=== PATIENT | female | born 1945 | race Caucasian/White ===

== ENCOUNTER 2017-11-05 12:21 | Inpatient (IN) | payer MEDICARE, BC ==
[~2017-11-05] VITALS: Ht 160 cm; Wt 65.5 kg
[~2017-11-05 12:21] MED LIST: ACET325T9 PO; ASPI-630 PO; CIPR500T94 PO; DOCU-109 PO; IBUP200T58 PO; LEVO100T PO; METR500T PO; PHEN100T82 PO; TIMO5DRO26 OU
[2017-11-05] MEDS ORDERED: MORPHINE SULFATE 4 MG/ML DISP.SYRIN. IV PRN (12:45)
[2017-11-05 13:07] LABS: BASO % 0 % (0-3); EOS # 0.1 x10^3/uL (0.0-0.7); EOS % 2 % (0-3); HEMATOCRIT 38.8 % (36.0-47.0); LYMPH # 0.9 x10^3/uL (1.0-4.8); LYMPH % 15 % (24-48); MEAN CORPUSCULAR HEMOGLOBIN 30 pg (25-35); MEAN CORPUSCULAR HGB CONC 34 g/dL (31-37); MEAN CORPUSCULAR VOLUME 90 fL (79-100); MONO # 0.4 x10^3/uL (0.0-1.1); MONO % 7 % (0-9); NEUT # 4.6 x10^3uL (1.8-7.7); NEUT % 76 % (31-73); PLATELET COUNT 275 x10^3/uL (140-400); RED BLOOD COUNT 4.31 x10^6/uL (3.50-5.40); RED CELL DISTRIBUTION WIDTH 13.9 % (11.5-14.5); WHITE BLOOD COUNT 6.1 x10^3/uL (4.0-11.0)
[2017-11-05 13:11] VITALS: BP 137/77
[2017-11-05 13:19] LABS: ALBUMIN 3.3 g/dL (3.4-5.0); ALBUMIN/GLOBULIN RATIO 0.9 (1.0-1.7); CALCIUM 9.7 mg/dL (8.5-10.1); CREATININE 0.8 mg/dL (0.6-1.0); GFR 70.1; POTASSIUM 3.8 mmol/L (3.5-5.1); TOTAL BILIRUBIN 0.4 mg/dL (0.2-1.0); TOTAL PROTEIN 6.8 g/dL (6.4-8.2)
[2017-11-05] MEDS: IV NORMAL SALINE 1,000ML 1,000 ML IV SCH ×2 (14:06→22:45)
[2017-11-05] MEDS ORDERED: [UNRECOGNIZED DRUG - CODE] OP (15:44)
[2017-11-05] MEDS ORDERED: TERI2.4P SQ (15:44)
[2017-11-05] MEDS ORDERED: LEVO88TA4 PO (15:44)
[2017-11-05] MEDS ORDERED: MULT1TAB52 PO (15:44)
[2017-11-05] MEDS ORDERED: ONDA8TAB14 PO (15:44)
[2017-11-05] MEDS ORDERED: POLY119P4 PO (15:44)
[2017-11-05] MEDS ORDERED: HYPR10GE OP (15:44)
[2017-11-05] MEDS: ONDANSETRON PF 4 MG/2 ML VIAL. IV PRN (16:44)
[2017-11-05 19:08] VITALS: BP 114/72
[2017-11-05] MEDS ORDERED: IBUPROFEN 400 MG TABLET. PO PRN (19:15)
[2017-11-05] MEDS ORDERED: ONDANSETRON ODT 4 MG TAB.RAPDIS PO PRN (19:45)
[2017-11-05] MEDS ORDERED: POLYVINYL ALCOHOL 1.4% OPHTH SOLUTION 15ML BOTTLE. OU PRN (20:00)
[2017-11-05] MEDS: LACTOBACILLUS RHAMNOSUS GG 1 CAPSULE. PO SCH (21:10)
[2017-11-05 23:03] VITALS: BP 106/70
[2017-11-06 00:06] LABS: BILIRUBIN,URINE NEG (NEG); CLARITY,URINE CLEAR; COLOR,URINE STRAW; GLUCOSE,URINE NEG (NEG)
[2017-11-06 00:07] LABS: BACTERIA,URINE FEW /HPF (0-FEW); NITRITE,URINE NEG (NEG); SQUAMOUS EPITHELIAL CELL,UR FEW /LPF; UROBILINOGEN,URINE 0.2 mg/dL (0.2 mg/dL); WBC,URINE 0 /HPF (0-4)
[2017-11-06] MEDS: LEVOTHYROXINE 88 MCG TABLET PO SCH (05:15)
[2017-11-06] MEDS: IV NORMAL SALINE 1,000ML 1,000 ML IV SCH (05:15)
[2017-11-06] MEDS: ACETAMINOPHEN 325 MG TABLET PO PRN ×2 (05:23→10:11)
[2017-11-06 05:43] VITALS: BP 114/61
[2017-11-06 06:44] LABS: CALCIUM 8.9 mg/dL (8.5-10.1); CREATININE 0.8 mg/dL (0.6-1.0); GFR 70.1; POTASSIUM 3.7 mmol/L (3.5-5.1)
[2017-11-06 06:48] LABS: BASO % 0 % (0-3); EOS # 0.1 x10^3/uL (0.0-0.7); EOS % 2 % (0-3); LYMPH # 1.4 x10^3/uL (1.0-4.8); LYMPH % 27 % (24-48); MEAN CORPUSCULAR HEMOGLOBIN 31 pg (25-35); MEAN CORPUSCULAR HGB CONC 34 g/dL (31-37); MEAN CORPUSCULAR VOLUME 91 fL (79-100); MONO # 0.5 x10^3/uL (0.0-1.1); MONO % 10 % (0-9); NEUT # 3.1 x10^3uL (1.8-7.7); NEUT % 62 % (31-73); PLATELET COUNT 287 x10^3/uL (140-400); RED BLOOD COUNT 4.28 x10^6/uL (3.50-5.40); WHITE BLOOD COUNT 5.1 x10^3/uL (4.0-11.0)
[2017-11-06] MEDS ORDERED: PNEUMOC CONJ VACC 13-VALENT 0.5 ML DISP.SYRIN. VAX IM ONE (09:00)
[2017-11-06] MEDS ORDERED: PNEUMOC CONJ VACC 23-VALENT 0.5 ML VIAL. VAX IM ONE (09:00)
[2017-11-06] MEDS: NON FORMULARY ITEM (Teriparatide (Forteo) 20 MCG) SQ SCH (09:00)
[2017-11-06] MEDS: POLYETHYLENE GLYCOL 3350 17 GM PACKET. PO SCH ×3 (09:00→21:36)
[2017-11-06] MEDS: LACTOBACILLUS RHAMNOSUS GG 1 CAPSULE. PO SCH ×2 (09:22→21:35)
[2017-11-06] MEDS: ASPIRIN 81 MG TAB.CHEW PO SCH (09:22)
[2017-11-06] MEDS: MULTIVITAMIN with MINERAL TABLET. PO SCH (09:23)
[2017-11-06] MEDS: TIMOLOL 0.5% OPHTH SOLUTION 5ML BOTTLE. OU SCH (09:23)
[2017-11-06 10:36] VITALS: BP 118/73
[2017-11-06 15:47] VITALS: BP 119/75
[2017-11-06 19:36] VITALS: BP 139/75
[2017-11-06 23:22] VITALS: BP 131/74
[2017-11-07] MEDS: ONDANSETRON PF 4 MG/2 ML VIAL. IV PRN (01:49)
[2017-11-07] MEDS: LEVOTHYROXINE 88 MCG TABLET PO SCH (05:39)
[2017-11-07] MEDS: IV NORMAL SALINE 1,000ML 1,000 ML IV SCH ×2 (05:47→14:45)
[2017-11-07 05:58] VITALS: BP 114/75
[2017-11-07] MEDS: NON FORMULARY ITEM (Teriparatide (Forteo) 20 MCG) SQ SCH (09:00)
[2017-11-07] MEDS ORDERED: PNEUMOC CONJ VACC 23-VALENT 0.5 ML VIAL. VAX IM ONE (09:00)
[2017-11-07] MEDS: MULTIVITAMIN with MINERAL TABLET. PO SCH (09:43)
[2017-11-07] MEDS: LACTOBACILLUS RHAMNOSUS GG 1 CAPSULE. PO SCH ×2 (09:43→20:44)
[2017-11-07] MEDS: ASPIRIN 81 MG TAB.CHEW PO SCH (09:43)
[2017-11-07] MEDS: TIMOLOL 0.5% OPHTH SOLUTION 5ML BOTTLE. OU SCH (09:43)
--- NOTE | 2017-11-07 10:48 | PN ---
DATE: 11/06/2017 SUBJECTIVE: The patient in with diverticulitis, was diagnosed down at [facility] during the stay. After she was told to stay, began to have more left lower quadrant pain despite oral antibiotics. Came in the office, was admitted for diverticulitis. The patient is doing a little better since, although she does still feel fairly tender down. PHYSICAL EXAMINATION: VITAL SIGNS: Her blood pressure 120/70, respiratory rate 20, pulse 95, afebrile. GENERAL: The patient is alert and oriented. LUNGS: Diminished, but clear. CARDIOVASCULAR: Regular sinus. ABDOMEN: Soft, diffuse tenderness in the left lower quadrant with some mild guarding. PLAN: We will continue to monitor the patient currently, make further evaluation. IMPRESSION: Diverticulitis, left lower quadrant sigmoid colon. SURYA AWAD MD DR: PASTORA/deneen JOB#: [id number] / [id number]
[2017-11-07 11:08] VITALS: BP 138/78
[2017-11-07 14:32] VITALS: BP 124/66
[2017-11-07 19:00] VITALS: BP 125/72
[2017-11-07] MEDS: POLYETHYLENE GLYCOL 3350 17 GM PACKET. PO SCH (21:00)
[2017-11-08 00:08] VITALS: BP 120/67
[2017-11-08] MEDS: LEVOTHYROXINE 88 MCG TABLET PO SCH (05:39)
[2017-11-08] MEDS: ACETAMINOPHEN 325 MG TABLET PO PRN (05:50)
[2017-11-08 05:51] VITALS: BP 129/71
--- NOTE | 2017-11-08 07:54 | PN ---
DATE: 11/07/2017 SUBJECTIVE: The patient is in with diverticulitis. The patient is doing somewhat better, however, still having some pain on the left side. OBJECTIVE: GENERAL: Otherwise, the patient is basically alert and oriented. VITAL SIGNS: Blood pressure 120/70, respiratory rate 20, pulse 70, afebrile. ____. LUNGS: Diminished, but clear. CARDIOVASCULAR: Regular sinus rhythm. ABDOMEN: Soft, diffuse tenderness on the left lower quadrant but markedly improved. IMPRESSION: Diverticulitis. ____. SURYA AWAD MD DR: PASTORA/deneen JOB#: [id number] / [id number]
[2017-11-08] MEDS: NON FORMULARY ITEM (Teriparatide (Forteo) 20 MCG) SQ SCH (09:00)
[2017-11-08] MEDS: ASPIRIN 81 MG TAB.CHEW PO SCH (09:12)
[2017-11-08] MEDS: LACTOBACILLUS RHAMNOSUS GG 1 CAPSULE. PO SCH (09:12)
[2017-11-08] MEDS: MULTIVITAMIN with MINERAL TABLET. PO SCH (09:12)
[2017-11-08] MEDS: TIMOLOL 0.5% OPHTH SOLUTION 5ML BOTTLE. OU SCH (09:19)
[2017-11-08] MEDS: IV NORMAL SALINE 1,000ML 1,000 ML IV SCH ×2 (09:21→15:08)
[2017-11-08 10:28] VITALS: BP 130/74
[2017-11-08 14:52] VITALS: BP 116/68
[2017-11-08] MEDS ORDERED: LEVO500T59 PO (15:19)
[2017-11-08] MEDS ORDERED: METR500T PO (15:19)
--- NOTE | 2017-11-10 19:22 | DS ---
DATE OF DISCHARGE: 11/08/2017 HOSPITAL COURSE: A 72-year-old female in with diverticulitis. She has been diagnosed at ____ per CT scan, refused to be admitted there, came up here. She was admitted and placed on IV antibiotic therapy including that of Levaquin and metronidazole. The patient also received a pneumococcal polyvalent vaccine Pneumovax 23. The patient made good progress with IV antibiotic therapy. Her pain resolved pretty much so she was discharged home. Her urine was negative for any significant growth. IMPRESSION: Diverticulitis, moderate protein malnutrition. The patient was discharged home. See MRAD. Decreased activity. Low fiber diet for 2 weeks and then increase after that the high fiber. 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 SURYA AWAD MD DR: PASTORA/deneen JOB#: [id number] / [id number]
== END 2017-11-08 19:35 | disposition home or self-care (01) | DRG 392 ==
LOC: 1 SOUTH 12:36
PROVIDERS: ADMIT Family Medicine; ATTEND Family Medicine
PROC: 3E0234Z Introduction of Serum, Toxoid and Vaccine into Muscle, Percutaneous Approach (ICD-10-PCS; principal; 2017-11-07)
DX: K57.32 Diverticulitis of large intestine without perforation or abscess without bleeding (principal); E44.0 Moderate protein-calorie malnutrition
CPT/HCPCS: 36415; 80048; 80053; 81001; 85025; 87086; J1956; J2405; J3490; 97110; 97530; J7030

== ENCOUNTER → 2018-08-02 | Outpatient (CLI) | payer MEDICARE, BC ==
[~2018-08-02] MED LIST changes: +HYPR10GE OP; +LEVO500T59 PO; +LEVO88TA4 PO; +MULT1TAB52 PO; +ONDA8TAB14 PO; +POLY119P4 PO; +TERI2.4P SQ; +[UNRECOGNIZED DRUG - CODE] OP
--- NOTE | 2018-08-02 10:15 | RAD ---
ABDOMEN COMPLETE History: Right upper quadrant abdominal pain and tenderness Comparison: CT exam June 22, 2015 and July 28, 2012 Findings: Multiple sonographic images of the abdomen are submitted. There is no abnormality of the visualized pancreas. Gallbladder is present without intraluminal abnormality, wall thickening, pericholecystic fluid. No free fluid is demonstrated. Right lobe of the liver measured 14.6 cm longitudinal. There is a hyperechoic lesion of the right lobe the liver about 4 x 3.9 x 3.5 cm in size, some internal vascularity on color Doppler imaging. Right kidney measured 11.9 x 4.5 x 4.5 cm, no hydronephrosis. Left kidney measured 10.6 x 5.5 x 4.9 cm. There is no hydronephrosis of either kidney. There are couple of foci of hypoechogenicity of the kidneys bilaterally, largest on the right about 1.2 x 0.9 x 0.7 cm and on the left about 1.6 x 1.7 x 1.3 cm. Spleen measured 10.4 cm. Abdominal aortic caliber is within normal limits up to 2.3 cm greatest dimension. There is segmental visualization of the inferior vena cava. Impression: 1. There is a hyperechoic lesion of the right lobe of the liver, hemangioma considered most likely. 2. There are small hypoechoic foci of the bilateral kidneys, likely cysts. Electronically signed by: Johan Combs MD (08/02/2018 10:12 AM) [id number]
== END | disposition home or self-care (01) ==
LOC: US 08:57
PROVIDERS: ATTEND Family Medicine
DX: K76.89 Other specified diseases of liver (principal)
CPT/HCPCS: 76700

== ENCOUNTER → 2019-12-15 | Outpatient (CLI) | payer MEDICARE, BC ==
[~2019-12-15] MED LIST changes: -ONDA8TAB14 PO; +ONDA8TAB17 PO
--- NOTE | 2019-12-15 15:35 | RAD ---
Chest, PA and Lateral: Technique: PA and lateral views of the chest were obtained. History: Cough. Comparison: None. Findings: The heart and pulmonary vasculature appear within normal limits. The lungs are clear. The pleural margins are clear. Impression: No acute chest process is seen. Electronically signed by: Rodney Woodruff MD (12/15/2019 3:32 PM) [id number]
== END | disposition home or self-care (01) ==
LOC: DXRAD 14:53
PROVIDERS: ATTEND Family Medicine
DX: J98.9 Respiratory disorder, unspecified (principal)
CPT/HCPCS: 71046

== ENCOUNTER → 2020-11-14 | Outpatient (CLI) | payer MEDICARE, BC ==
[~2020-11-14] MED LIST changes: +ALPR1TAB2 PO; +AMIT25TA PO; +LIFI1DRO EACHEYE; +LORA1TAB47 PO; +MELA3TAB43 PO; +MULT-445 PO; -MULT1TAB52 PO
[2020-11-14 16:23] LABS: BASO % 0 % (0-3); EOS # 0.2 x10^3/uL (0.0-0.7); EOS % 4 % (0-3); HEMATOCRIT 40.8 % (36.0-47.0); HEMOGLOBIN 13.6 g/dL (12.0-15.5); LYMPH # 1.7 x10^3/uL (1.0-4.8); LYMPH % 29 % (24-48); MEAN CORPUSCULAR HEMOGLOBIN 30 pg (25-35); MEAN CORPUSCULAR HGB CONC 33 g/dL (31-37); MEAN CORPUSCULAR VOLUME 90 fL (79-100); MONO # 0.4 x10^3/uL (0.0-1.1); MONO % 8 % (0-9); NEUT # 3.3 x10^3uL (1.8-7.7); NEUT % 59 % (31-73); PLATELET COUNT 379 x10^3/uL (140-400); RED BLOOD COUNT 4.52 x10^6/uL (3.50-5.40); RED CELL DISTRIBUTION WIDTH 13.8 % (11.5-14.5); WHITE BLOOD COUNT 5.6 x10^3/uL (4.0-11.0)
--- NOTE | 2020-11-14 16:23 | RAD ---
EXAM: CT Chest without IV contrast CLINICAL HISTORY: Pneumonia COMPARISON: Ultrasound 08/02/2018. CT 06/22/2015s TECHNIQUE: CT of the chest without intravenous contrast. Axial, coronal and sagittal reformatted imag es were generated. ---PQRS compliance statement - One or more of the following individualized dose reduction techniques were utilized for this study: 1. Automated exposure control 2. Adjustment of the mA and/or kV according to patient size 3. Use of iterative reconstruction technique--- FINDINGS: Lack of intravenous contrast limits evaluation of solid organs, vasculature, and lymph nodes. Chest: Heart is not enlarged. No pericardial effusion. Ascending aorta measures 3.8 cm in diameter. No pleural effusion or pneumothorax. No axillary lymphadenopathy. Within the constraints of this noncontrast examination, no mediastinal o r hilar lymphadenopathy. Left lower lobe airspace opacities are seen, likely from recently. In addition patchy opacities are s een in the left upper lobe and right upper lobe. Several small lung nodules are seen measuring 4-6 mm . Visualized Upper abdomen: Nonobstructing left upper pole renal calculus. Indeterminate 2 cm right hep atic lobe lesion. Bones: No aggressive osseous lesion is seen. Multiple hemangiomas are noted. Decreased bone mineral d ensity. IMPRESSION: 1. Parenchymal opacities in the lungs bilaterally likely multifocal consolidative process particular ly in the left lower lobe. Imaging follow-up to resolution is recommended. 2. Indeterminate right hepatic lobe lesion, a right hepatic lobe lesion was described on prior ultra sound as a hemangioma. 3. Several lung nodules are seen measuring up to 6 mm. Per Fleischner Society guidelines for inciden tally found solid nodules measuring less than 6 mm, no follow-up is necessary if patient is considere d at low risk for lung cancer. If patient is considered to be at high risk, such as with history of s moking, then CT follow-up in about 12 months can be considered. 4. Nonobstructing left upper pole renal calculus. Electronically signed by: Kelby Duque MD (11/14/2020 4:20 PM) [facility]
[2020-11-14 16:33] LABS: CALCIUM 9.4 mg/dL (8.5-10.1); GFR 53.8; POTASSIUM 4.3 mmol/L (3.5-5.1)
== END ==
LOC: CT 15:29
PROVIDERS: ATTEND Family Medicine
DX: R91.1 Solitary pulmonary nodule (principal); J18.9 Pneumonia, unspecified organism; K76.9 Liver disease, unspecified; N20.0 Calculus of kidney
CPT/HCPCS: 36415; 71250; 80048; 85025

== ENCOUNTER 2020-11-15 11:31 | Inpatient (IN) | payer MEDICARE, BC ==
[~2020-11-15] VITALS: Ht 160 cm; Wt 65.0 kg
[~2020-11-15 11:31] MED LIST changes: -ALPR1TAB2 PO; -AMIT25TA PO; -LIFI1DRO EACHEYE; -LORA1TAB47 PO; -MELA3TAB43 PO
[2020-11-15 15:44] VITALS: BP 156/73
[2020-11-15] MEDS ORDERED: VANCOMYCIN PER PHARMACY MC PRN (16:15)
[2020-11-15] MEDS ORDERED: ONDANSETRON PF 4 MG/2 ML VIAL. IVP PRN (16:15)
[2020-11-15] MEDS: DEXAMETHASONE SOD PHOS 10 MG/ML VIAL. IVP SCH (16:30)
[2020-11-15] MEDS: AZITHROMYCIN 500 MG in IV NORMAL SALINE 250ML 250 ML IV SCH (16:30)
[2020-11-15] MEDS ORDERED: VANCOMYCIN 1 GM in IV NORMAL SALINE 250ML 250 ML IV SCH (17:00)
[2020-11-15] MEDS ORDERED: VANCOMYCIN 1.75 GM in IV NORMAL SALINE 500ML 500 ML IV ONE (17:00)
[2020-11-15 17:12] LABS: ALBUMIN 3.6 g/dL (3.4-5.0); ALBUMIN/GLOBULIN RATIO 0.9 (1.0-1.7); BASO # 0.2 x10^3/uL (0.0-0.2); BASO % 3 % (0-3); EOS # 0.2 x10^3/uL (0.0-0.7); EOS % 3 % (0-3); HEMATOCRIT 41.1 % (36.0-47.0); HEMOGLOBIN 13.3 g/dL (12.0-15.5); LYMPH # 1.6 x10^3/uL (1.0-4.8); LYMPH % 24 % (24-48); MEAN CORPUSCULAR HEMOGLOBIN 30 pg (25-35); MEAN CORPUSCULAR HGB CONC 32 g/dL (31-37); MEAN CORPUSCULAR VOLUME 92 fL (79-100); MONO # 0.5 x10^3/uL (0.0-1.1); MONO % 7 % (0-9); NEUT # 4.1 x10^3uL (1.8-7.7); NEUT % 63 % (31-73); PLATELET COUNT 348 x10^3/uL (140-400); RED BLOOD COUNT 4.49 x10^6/uL (3.50-5.40); TOTAL PROTEIN 7.6 g/dL (6.4-8.2); WHITE BLOOD COUNT 6.6 x10^3/uL (4.0-11.0)
[2020-11-15 17:13] LABS: CALCIUM 9.4 mg/dL (8.5-10.1); GFR 53.8; POTASSIUM 3.9 mmol/L (3.5-5.1); TOTAL BILIRUBIN 0.4 mg/dL (0.2-1.0)
[2020-11-15] MEDS ORDERED: PIP/TAZO PER PHARMACY MC PRN (17:45)
[2020-11-15] MEDS ORDERED: ACETAMINOPHEN 325 MG TABLET PO PRN (17:45)
[2020-11-15 18:45] LABS: % ATYL 7 % (0-0); % EOS 5 % (0-5); % LYMPHS 25 % (24-48); % MONOS 5 % (0-10); % SEGS 58 % (35-66)
[2020-11-15 18:46] LABS: PLT ESTIMATE ADEQUATE (ADEQUATE)
[2020-11-15 19:00] VITALS: BP 142/86
[2020-11-15] MEDS ORDERED: AMIT25TA PO (19:31)
[2020-11-15] MEDS ORDERED: ALPR1TAB2 PO (19:31)
[2020-11-15] MEDS ORDERED: MULT-445 PO (19:31)
[2020-11-15] MEDS ORDERED: LIFI1DRO EACHEYE (19:31)
[2020-11-15] MEDS ORDERED: MELA3TAB43 PO (19:31)
[2020-11-15] MEDS: LIFITEGRAST EACHEYE SCH (21:00)
[2020-11-15] MEDS ORDERED: PSEUDOEPHEDRINE ER 120 MG TABLET.ER. PO SCH (21:00)
[2020-11-15] MEDS: ALPRAZolam 0.5 MG TABLET PO SCH (21:34)
[2020-11-15] MEDS: AMITRIPTYLINE HCL 25 MG TABLET PO SCH (21:34)
[2020-11-15] MEDS: ENOXAPARIN 40 MG/0.4 ML SYRINGE. SQ SCH (21:35)
[2020-11-15] MEDS: PIPERACILLIN/TAZOBACTAM 4.5 GM in IV NORMAL SALINE 50ML 50 ML IV SCH (22:18)
[2020-11-15] MEDS ORDERED: LORA1TAB47 PO (22:42)
[2020-11-15 22:45] VITALS: BP 146/86
[2020-11-15] MEDS: CETIRIZINE HCL 10 MG TABLET PO SCH (23:05)
[2020-11-15] MEDS: TIMOLOL 0.5% OPHTH SOLUTION 5ML BOTTLE. OU SCH (23:05)
[2020-11-16] MEDS: LEVOTHYROXINE 88 MCG TABLET PO SCH (05:58)
[2020-11-16] MEDS: PIPERACILLIN/TAZOBACTAM 4.5 GM in IV NORMAL SALINE 50ML 50 ML IV SCH ×3 (05:58→21:39)
[2020-11-16 06:20] VITALS: BP 111/64
[2020-11-16] MEDS: POLYETHYLENE GLYCOL 3350 17 GM PACKET. PO SCH (08:29)
[2020-11-16] MEDS: MULTIVITAMIN with MINERAL TABLET. PO SCH (08:29)
[2020-11-16] MEDS: LACTOBACILLUS RHAMNOSUS GG 1 CAPSULE. PO SCH ×2 (08:29→20:03)
[2020-11-16] MEDS: ASPIRIN CHEWABLE 81 MG TABLET. PO SCH (08:30)
[2020-11-16] MEDS: DEXAMETHASONE SOD PHOS 10 MG/ML VIAL. IVP SCH (08:30)
[2020-11-16] MEDS: TIMOLOL 0.5% OPHTH SOLUTION 5ML BOTTLE. OU SCH (09:00)
[2020-11-16] MEDS: LIFITEGRAST EACHEYE SCH ×2 (09:00→21:00)
[2020-11-16 11:00] VITALS: BP 115/65
[2020-11-16 15:00] VITALS: BP 109/53
[2020-11-16] MEDS ORDERED: VANCOMYCIN 1 GM in IV NORMAL SALINE 250ML 250 ML IV SCH (17:00)
[2020-11-16] MEDS: AZITHROMYCIN 500 MG in IV NORMAL SALINE 250ML 250 ML IV SCH (17:17)
--- NOTE | 2020-11-16 18:28 | PN ---
DATE: SUBJECTIVE: A 75-year-old female in with COVID-19 pneumonia consolidations in both lungs. The patient had been tried as an outpatient with oral antibiotics; however, failed that became increasingly weakened and shortness of breath with minimal exertion of only 5-10 feet and became extremely exhausted and unable to move. CT scan demonstrated a consolidative process in both lungs and as a result of her failure of oral antibiotics. The patient was admitted for IV antibiotics and further evaluation of her COVID-19 pneumonia. OBJECTIVE: GENERAL: The patient otherwise today is doing a little better. She looks a little bit stronger. VITAL SIGNS: Blood pressure 140/80, respiratory rate 10, pulse 90, afebrile, room air 95%. HEENT: The patient's head was atraumatic, normocephalic. Eyes: PERRLA without jaundice. The mouth and throat were normal. NECK: Supple. LUNGS: Diminished throughout, but basically clear. CARDIOVASCULAR: Regular sinus rhythm, S1, S2, without murmur, rub, thrill, or extra heart sound. ABDOMEN: Soft, nontender. EXTREMITIES: No clubbing, cyanosis or edema. LABORATORY DATA: Looking basically steady and will continue with her IV antibiotic therapy with some Decadron as well as Lovenox and make further evaluation along with her respiratory failure. Otherwise, the patient continued to be monitored carefully to make further evaluation as indicated. IMPRESSION: COVID-19 pneumonia with consolidation, generalized weakness, failure to thrive. SURYA AWAD MD DR: PASTORA/deneen JOB#: [id number] / [id number]
[2020-11-16 20:00] VITALS: BP 111/58
[2020-11-16] MEDS ORDERED: IPRATROPIUM BROMIDE 0.5 MG/2.5 ML NEBU. NEB SCH (20:00)
[2020-11-16] MEDS: IPRATROPIUM/ALBUTEROL 20/100mcg/INH INHALER. INH SCH (20:02)
[2020-11-16] MEDS: ALPRAZolam 0.5 MG TABLET PO SCH (20:02)
[2020-11-16] MEDS: CETIRIZINE HCL 10 MG TABLET PO SCH (20:02)
[2020-11-16] MEDS: ENOXAPARIN 40 MG/0.4 ML SYRINGE. SQ SCH (20:03)
[2020-11-16] MEDS: AMITRIPTYLINE HCL 25 MG TABLET PO SCH (20:04)
[2020-11-17] MEDS: LEVOTHYROXINE 88 MCG TABLET PO SCH (05:48)
[2020-11-17] MEDS: PIPERACILLIN/TAZOBACTAM 4.5 GM in IV NORMAL SALINE 50ML 50 ML IV SCH ×3 (05:48→20:47)
--- NOTE | 2020-11-17 06:28 | RAD ---
AP chest x-ray HISTORY: Pneumonia. COMPARISON: CT chest November 06, 2020. FINDINGS: Heart size normal. Mediastinal silhouette is normal. No pneumothorax. No pleural effusions. The heterogeneous opacities of the left lung base has significantly improved with mild residual opac ities remaining. Right lung is clear. IMPRESSION: Improvement of the left lower lobe pulmonary infiltrates. Electronically signed by: Froylan Zabala MD (11/17/2020 6:26 AM) [facility]
[2020-11-17 06:37] VITALS: BP 124/58
[2020-11-17] MEDS: IPRATROPIUM/ALBUTEROL 20/100mcg/INH INHALER. INH SCH ×4 (08:17→20:00)
[2020-11-17] MEDS: ASPIRIN CHEWABLE 81 MG TABLET. PO SCH (08:18)
[2020-11-17] MEDS: LACTOBACILLUS RHAMNOSUS GG 1 CAPSULE. PO SCH ×2 (08:18→20:46)
[2020-11-17] MEDS: ACETAMINOPHEN 325 MG TABLET PO PRN (08:19)
[2020-11-17] MEDS: MULTIVITAMIN with MINERAL TABLET. PO SCH (08:19)
[2020-11-17] MEDS: TIMOLOL 0.5% OPHTH SOLUTION 5ML BOTTLE. OU SCH (08:19)
[2020-11-17] MEDS: LIFITEGRAST EACHEYE SCH ×2 (08:19→21:00)
[2020-11-17] MEDS: DEXAMETHASONE SOD PHOS 10 MG/ML VIAL. IVP SCH (08:19)
[2020-11-17] MEDS ORDERED: PSEUDOEPHEDRINE ER 120 MG TABLET.ER. PO SCH (09:00)
[2020-11-17] MEDS: POLYETHYLENE GLYCOL 3350 17 GM PACKET. PO SCH ×2 (09:00→20:47)
[2020-11-17] MEDS: guaiFENesin DM 600/30MG 1 TAB TAB.ER.12H PO SCH ×2 (09:30→20:46)
[2020-11-17] MEDS ORDERED: PANTOPRAZOLE IV 40 MG VIAL. IVP SCH (09:30)
[2020-11-17 11:00] VITALS: BP 100/53
[2020-11-17 15:25] VITALS: BP 117/64
[2020-11-17] MEDS: AZITHROMYCIN 500 MG in IV NORMAL SALINE 250ML 250 ML IV SCH (16:35)
[2020-11-17 19:00] VITALS: BP 115/56
[2020-11-17] MEDS: ALPRAZolam 0.5 MG TABLET PO SCH (20:46)
[2020-11-17] MEDS: CETIRIZINE HCL 10 MG TABLET PO SCH (20:46)
[2020-11-17] MEDS: AMITRIPTYLINE HCL 25 MG TABLET PO SCH (20:46)
[2020-11-17] MEDS: ENOXAPARIN 40 MG/0.4 ML SYRINGE. SQ SCH (20:46)
[2020-11-18] MEDS: LEVOTHYROXINE 88 MCG TABLET PO SCH (05:55)
[2020-11-18] MEDS: PIPERACILLIN/TAZOBACTAM 4.5 GM in IV NORMAL SALINE 50ML 50 ML IV SCH ×3 (05:55→21:07)
--- NOTE | 2020-11-18 06:10 | PN ---
DATE: 11/17/2020 SUBJECTIVE: At 75-year-old female in with COVID-19 pneumonia and bilateral consolidations, is doing somewhat better. The patient receiving IV antibiotic therapy and making good progress overall. OBJECTIVE: VITAL SIGNS: Blood pressure approximately 100/50, respiratory rate 20, pulse 70, temperature 99.8. X-ray shows improvement; the patient's lungs are diminished, but improved. LUNGS: Clear. CARDIOVASCULAR: Regular sinus rhythm. ABDOMEN: Soft, nontender. EXTREMITIES: No clubbing, cyanosis, nor edema. NEUROLOGIC: The patient is stable. PLAN: Continue with IV antibiotic therapy and make further adjustments as indicated, but she is improving using COVID-19 protocol. SURYA AWAD MD DR: PASTORA/deneen JOB#: [id number] / [id number]
[2020-11-18 08:56] VITALS: BP 117/56
--- NOTE | 2020-11-18 09:55 | PN ---
DATE: SUBJECTIVE: A 75-year-old female with COVID-19 pneumonia bilaterally, acute respiratory distress with some hypoxia. The patient is resting comfortably, still having some really bad coughing jags probably bronchospasm bringing up phlegm. Otherwise, the patient seems to be resting fairly comfortably. OBJECTIVE: VITAL SIGNS: Blood pressure 117/56, respiratory rate 20, pulse 60, afebrile. The patient's oxygen saturation is good at 96% on room air. The patient otherwise continues to make progress, still fairly weak, although x-ray yesterday shows improvement of her consolidations. IMPRESSION: COVID-19 pneumonia, bilateral consolidations, acute respiratory distress, severe bronchospasm. Continue with present drug regimen. SURYA AWAD MD DR: PASTORA/deneen JOB#: [id number] / [id number]
[2020-11-18] MEDS: IPRATROPIUM/ALBUTEROL 20/100mcg/INH INHALER. INH SCH ×4 (10:00→20:00)
[2020-11-18] MEDS: guaiFENesin DM 600/30MG 1 TAB TAB.ER.12H PO SCH ×2 (10:01→21:07)
[2020-11-18] MEDS: MULTIVITAMIN with MINERAL TABLET. PO SCH (10:01)
[2020-11-18] MEDS: LACTOBACILLUS RHAMNOSUS GG 1 CAPSULE. PO SCH ×2 (10:01→21:06)
[2020-11-18] MEDS: ASPIRIN CHEWABLE 81 MG TABLET. PO SCH (10:01)
[2020-11-18] MEDS: DEXAMETHASONE SOD PHOS 10 MG/ML VIAL. IVP SCH (10:01)
[2020-11-18] MEDS: LIFITEGRAST EACHEYE SCH ×2 (10:16→19:50)
[2020-11-18] MEDS: TIMOLOL 0.5% OPHTH SOLUTION 5ML BOTTLE. OU SCH (10:16)
[2020-11-18 11:44] VITALS: BP 112/55
[2020-11-18 15:57] VITALS: BP 108/53
[2020-11-18] MEDS: AZITHROMYCIN 500 MG in IV NORMAL SALINE 250ML 250 ML IV SCH (16:52)
[2020-11-18 19:50] VITALS: BP 140/71
[2020-11-18] MEDS: ENOXAPARIN 40 MG/0.4 ML SYRINGE. SQ SCH (21:00)
[2020-11-18] MEDS: POLYETHYLENE GLYCOL 3350 17 GM PACKET. PO SCH (21:06)
[2020-11-18] MEDS: AMITRIPTYLINE HCL 25 MG TABLET PO SCH (21:06)
[2020-11-18] MEDS: ALPRAZolam 0.5 MG TABLET PO SCH (21:06)
[2020-11-18] MEDS: CETIRIZINE HCL 10 MG TABLET PO SCH (21:06)
[2020-11-19] MEDS: LEVOTHYROXINE 88 MCG TABLET PO SCH (05:04)
[2020-11-19] MEDS: PIPERACILLIN/TAZOBACTAM 4.5 GM in IV NORMAL SALINE 50ML 50 ML IV SCH ×3 (05:04→23:14)
[2020-11-19 06:01] VITALS: BP 120/69
[2020-11-19 08:35] VITALS: BP 140/65
[2020-11-19] MEDS: guaiFENesin DM 600/30MG 1 TAB TAB.ER.12H PO SCH ×2 (08:55→20:48)
[2020-11-19] MEDS: ASPIRIN CHEWABLE 81 MG TABLET. PO SCH (08:56)
[2020-11-19] MEDS: IPRATROPIUM/ALBUTEROL 20/100mcg/INH INHALER. INH SCH ×4 (08:56→20:47)
[2020-11-19] MEDS: MULTIVITAMIN with MINERAL TABLET. PO SCH (08:56)
[2020-11-19] MEDS: PANTOPRAZOLE 40 MG TABLET. PO SCH (08:56)
[2020-11-19] MEDS: LACTOBACILLUS RHAMNOSUS GG 1 CAPSULE. PO SCH ×2 (08:56→20:48)
[2020-11-19] MEDS: DEXAMETHASONE SOD PHOS 10 MG/ML VIAL. IVP SCH (09:00)
[2020-11-19] MEDS: LIFITEGRAST EACHEYE SCH ×2 (09:00→20:49)
[2020-11-19] MEDS: TIMOLOL 0.5% OPHTH SOLUTION 5ML BOTTLE. OU SCH (09:07)
--- NOTE | 2020-11-19 10:27 | PN ---
DATE: SUBJECTIVE: A 75-year-old female in with COVID-19 pneumonia, acute respiratory distress. The patient is resting fairly comfortably. Complained of chest pain in her left chest area and also radiating up to her neck and up to her ear. The patient otherwise presently is not on any pain. The patient is still running low-grade temperature of 99.4. OBJECTIVE: VITAL SIGNS: Blood pressure 140/60, respiratory rate 20, pulse in the 50s. EKG pending. Cardiac enzymes pending. LUNGS: Otherwise, lungs clear. CARDIOVASCULAR: Stable. ABDOMEN: Soft, nontender. NEUROLOGIC: Intact, seems to be improving on one aspect. We will continue to monitor her on this chest pain with cardiac enzymes and EKGs. IMPRESSION: Bilateral lobe COVID-19 consolidation with acute respiratory distress with hypoxia, severe bronchospasm and chest pain. PLAN: As above. SURYA AWAD MD DR: PASTORA/deneen JOB#: [id number] / [id number]
[2020-11-19] MEDS: METOCLOPRAMIDE HCL 10 MG/10 ML SOLUTION. PO SCH ×3 (12:05→20:47)
[2020-11-19 13:59] VITALS: BP 154/69
--- NOTE | 2020-11-19 15:37 | EKG ---
[address] [address] Test Date: 2020-11-19 Test Time: 08:19:47 Pat Name: MALU REED Department: Room: 122 A Gender: F Ticketer: : 1945 Requested By: SURYA AWAD Order Number: [id number] Reading MD: Measurements Intervals [place] Rate: 55 P: 36 NE: 190 QRS: 13 QRSD: 80 T: 48 QT: 398 QTc: 383 Interpretive Statements SINUS RHYTHM ATRIAL PREMATURE COMPLEX(ES) OTHERWISE NORMAL ECG RI6.01 No previous ECG available for comparison
[2020-11-19] MEDS: AZITHROMYCIN 500 MG in IV NORMAL SALINE 250ML 250 ML IV SCH (16:29)
[2020-11-19 19:46] VITALS: BP 115/61
[2020-11-19] MEDS: POLYETHYLENE GLYCOL 3350 17 GM PACKET. PO SCH (20:47)
[2020-11-19] MEDS: ENOXAPARIN 40 MG/0.4 ML SYRINGE. SQ SCH (20:47)
[2020-11-19] MEDS: ACETAMINOPHEN 325 MG TABLET PO PRN (20:48)
[2020-11-19] MEDS: CETIRIZINE HCL 10 MG TABLET PO SCH (20:48)
[2020-11-19] MEDS: ALPRAZolam 0.5 MG TABLET PO SCH (20:48)
[2020-11-19] MEDS: AMITRIPTYLINE HCL 25 MG TABLET PO SCH (20:49)
[2020-11-19 23:00] VITALS: BP 105/55
[2020-11-20 05:08] VITALS: BP 127/66
[2020-11-20] MEDS: PIPERACILLIN/TAZOBACTAM 4.5 GM in IV NORMAL SALINE 50ML 50 ML IV SCH (05:08)
[2020-11-20] MEDS: LEVOTHYROXINE 88 MCG TABLET PO SCH (05:08)
[2020-11-20] MEDS: IPRATROPIUM/ALBUTEROL 20/100mcg/INH INHALER. INH SCH ×2 (08:00→11:34)
[2020-11-20] MEDS: ASPIRIN CHEWABLE 81 MG TABLET. PO SCH (08:08)
[2020-11-20] MEDS: guaiFENesin DM 600/30MG 1 TAB TAB.ER.12H PO SCH (08:08)
[2020-11-20] MEDS: PANTOPRAZOLE 40 MG TABLET. PO SCH (08:08)
[2020-11-20] MEDS: MULTIVITAMIN with MINERAL TABLET. PO SCH (08:08)
[2020-11-20] MEDS: METOCLOPRAMIDE HCL 10 MG/10 ML SOLUTION. PO SCH ×2 (08:09→11:30)
[2020-11-20] MEDS: LACTOBACILLUS RHAMNOSUS GG 1 CAPSULE. PO SCH (08:09)
[2020-11-20] MEDS: DEXAMETHASONE SOD PHOS 10 MG/ML VIAL. IVP SCH (08:10)
[2020-11-20] MEDS: LIFITEGRAST EACHEYE SCH (08:56)
[2020-11-20] MEDS: TIMOLOL 0.5% OPHTH SOLUTION 5ML BOTTLE. OU SCH (08:56)
[2020-11-20] MEDS ORDERED: AZITHROMYCIN 250 MG TABLET. PO SCH (09:00)
[2020-11-20 10:50] VITALS: BP 127/67
[2020-11-20] MEDS ORDERED: IV NORMAL SALINE 1,000ML 1,000 ML IV SCH (12:00)
--- NOTE | 2020-11-20 12:18 | DS ---
DATE OF DISCHARGE: HOSPITAL COURSE: A 75-year-old female with history of COVID-19 pneumonia, came in with increased shortness of breath and generalized weaknesses. The patient had not responded to outpatient therapy, also had some hypoxia with exertion down into the mid 80s. The patient was brought in and placed on IV antibiotic therapies, Decadron, breathing treatments and the like in any case, the patient made reasonably good progress with that. Her x-rays, CAT scans so forth demonstrated a consolidation. CT of the chest on 11/14 had show several lung nodules are seen measuring up to 6 mm and those need to be followed up within about 12 months. She also had a hemangioma and multifocal consolidations in the lungs themselves. The patient made reasonably good progress with the IV antibiotic therapy. Blood pressure 120/70, respiratory rate 16, pulse 65, 97% on room air. The patient has noted improved steadily. She will be discharged home, placed in isolation. Continue on oral antibiotics as an outpatient. Have her follow up in the office for clarification of her consolidations. IMPRESSION: Sepsis, COVID-19 pneumonia, bilateral consolidations, acute respiratory distress with hypoxia, severe bronchospasm, hypothyroidism, gastroesophageal reflux disease. PLAN: The patient will be on a heart healthy diet, decreased activity. Return to clinic for followup. She is to be in isolation for at least 7-10 days when she returns to her home. SURYA AWAD MD DR: PASTORA/deneen JOB#: [id number] / [id number]
[2020-11-20] MEDS ORDERED: ASPI-630 PO (12:27)
[2020-11-20] MEDS ORDERED: METO5TAB PO (12:27)
[2020-11-20] MEDS ORDERED: LEVO500T8 PO (12:27)
[2020-11-20] MEDS ORDERED: PANT40TA6 PO (12:27)
[2020-11-20] MEDS ORDERED: GUAI-108 PO (12:27)
[2020-11-20] MEDS ORDERED: AZIT250T6 PO (12:27)
[2020-11-20] MEDS ORDERED: DEXA4TAB63 PO (12:27)
[2020-11-20] MEDS ORDERED: IPRA4AER INH (12:27)
== END 2020-11-20 14:46 | disposition home or self-care (01) | DRG 871 ==
LOC: 1 SOUTH 15:20
PROVIDERS: ADMIT Family Medicine; ATTEND Family Medicine
DX: A41.89 Other specified sepsis (principal); U07.1 COVID-19; J12.82 Pneumonia due to coronavirus disease 2019; E03.9 Hypothyroidism, unspecified; J98.01 Acute bronchospasm; K21.9 Gastro-esophageal reflux disease without esophagitis; R62.7 Adult failure to thrive; R06.03 Acute respiratory distress; Z78.9 Other specified health status
CPT/HCPCS: 36415; 71045; 71250; 80048; 80053; 82550; 84484; 85007; 85025; 87040; 93005; C9113; J0456; J1100; J1650; J1956; J2543; J7050